=== PATIENT | male | born 1950 | race Caucasian/White ===

== ENCOUNTER → 2016-12-18 | Outpatient (CLI) | payer OTHER ==
[~2016-12-18] MED LIST: PRLSR20 PO
[2016-12-18 14:27] VITALS: BP 145/82; PULSE 78; TEMP 37; O2SAT 95
--- NOTE | 2016-12-18 16:16 | Radiation Oncology Follow-Up ---
Radiation Oncology Follow-Up Date of Visit Dec 18, 2016. Reason For Visit Annual follow-up Radiation Completion Date seed implant on 11-16-2014 and finished IMRT 02-09-2015 Diagnosis (1) Prostate cancer Status: Resolved Onset Date: 01/09/2011 Location: right lobe of the prostate Histology Subtype: adenocarcinoma Stage: ll Permanent Comment: Rising PSA Status post biopsy 01/09/2011 revealing adenocarcinoma [place] 3+3 Watchful waiting Repeat biopsy 03/15/2014 Francois 3+3 and 3+4 The patient requests delay treatment The patient wished to avoid hormone suppression Decision to be treated with seed implant followed by external beam radiation therapy Status post prostate seed implant with cesium 131 11/16/2014 received 8500 cGy Status post completion of IMRT/IGRT completed 02/09/2015 received 4500 cGy Last Edited By: Jaylyn Garner on Mar 07, 2015 12:09 History of Present Illness Mr. Johnson is a 66-year-old male who has a remote history of prostate cancer. The patient's paternal grandmother was diagnosed with prostate cancer in his 80s and due to disseminated prostate cancer. He has been followed with serial prostate-specific antigens. These remained in the range of 1 2010. On 11/02/2010 prostate-specific antigen increased to 7.59. This was therefore repeated on 11/10/2010 and remained elevated at 6.83. Because of this change the patient was scheduled for an ultrasound-guided prostate biopsy performed by Dr. Ferrer on 01/09/2011. A total of 12 core samples were taken of which 10 were benign. The biopsy from the left lateral mid gland was positive for an adenocarcinoma Francois grade 3+3 with no evidence of perineural invasion involving 10% of the core specimen. Biopsy from the right base revealed adenocarcinoma Francois grade 3+3 with no evidence of perineural invasion involving 5% of the core sample. His clinical stage at the time was T1c. Dr. Ferrer discussed treatment options with the patient. At that time he was in the very low risk category and the patient opted to proceed with active surveillance. As part of that process he continued to be followed with digital rectal exams and repeat prostate-specific antigens. On 02/20/2012 his prostate-specific antigen was 5.5. On 02/17/2013 the prostate-specific antigen was 4.39. On 03/02/2014 the prostate-specific antigen increased to 5.83. The patient was seen by Dr. Becca Sun. She discussed the option of continued active surveillance or a repeat biopsies. The patient agreed on a repeat biopsy and these were performed on . A total of 13 core samples were taken. 10 were benign. The biopsy from the right base revealed a prostatic adenocarcinoma Francois grade 3+4 involving 1% of the core sample. Biopsy from the left lateral mid gland revealed prostatic adenocarcinoma [place] grade 3+4 involving less than 5% of the core sample. Biopsy from the right lateral apex was positive for prostatic adenocarcinoma Francois grade 3+3 involving 5% of the core sample. 4 biopsies that were benign had evidence of highgrade PIN and 1 contained atypical small acinar proliferation. [id number]. His estimated prostate volume was 37.7 cm and estimated prostate-specific antigen density was 0.18. This sample showed clear evidence of more aggressive disease. With that finding the patient wished to consider treatment options. He did not wish to have surgery and wished to discuss radiation treatment options. Dr. Sun arrange for the patient to be seen in [place] by Dr. Hirsch to discuss the role of prostate seed implant. It is unclear to the patient whether this was a recommendation for prostate seed implant as monotherapy or part of a more extensive treatment recommendation. Regardless the patient did not wish to consider treatment until the beginning of this year. However in August of last year he was notified that Dr. Hirsch had left [place] and that if the patient wished to receive an implant in the [employer] system he would need to go to [place]. The patient did not wish to travel that far and therefore Dr. Lai his PCP arranged for him to be seen by Dr. Mendez Vidales for consideration and discussion of treatment options. The patients decision was to proceed with a prostate implant followed by IMRT. Interim History He is been doing well over this past year for urinary standpoint. His AUA score was 2. He completed expanded prostate cancer index composite for clinical practice and gave a score of 0 of 12 and urinary incontinence symptoms. He gave a score of 0 of 12 urinary irritation symptoms. He gave a score of one of 12 bowel symptoms. He gave a score 1 of 12 and sexual symptoms. He gave a score of 0 of 12 in hormonal vitality symptoms. His total was 2 of 60. He does not require any medication to help with urination. His last PSA was performed [facility] and was 1.00. This was performed on . Prior PSA 05/27/2015 was 4.320. Allergies Coded Allergies: No Known Allergies (Unverified , 11/16/14) Home Medications Scheduled Omeprazole (Prilosec), 20 MG PO DAILY Review of Systems Gastrointestinal: Symptoms: WNL GI Comments: occ loose stools Oral: Symptoms: No Problems Respiratory: Symptoms: WNL Urinary: Symptoms: WNL Comments: occ urgency Skin: Symptoms: No Problems Physical Exam Vital Signs Date Time Temp Pulse Resp B/P Pulse Ox O2 Delivery O2 Flow Rate FiO2 12/18/16 14:27 37.0 78 16 145/82 95 Pain: Side: Bilateral Pain Location: None Patient Pain Scale: 0 - 10 Initial Pain Intensity: 0.0 Fatigue: None General Appearance: no apparent distress Eyes: normal inspection, EOMI ENT: normal ENT inspection, hearing grossly normal Neck: no adenopathy, thyroid normal Respiratory/Chest: lungs clear, no respiratory distress, no accessory muscle use Cardiovascular: regular rate, rhythm, no gallop, no murmur Abdomen: non tender, soft, no organomegaly Anal / Rectum: Rectal examination reveals prostate to be enlarged and firm. No nodules. There are no rectal masses and no rectal bleeding. Laboratory Studies PSA was drawn and is pending. Assessment & Plan Plan: PSA was drawn today prior to examination. He'll be notified as to results. Continue regular follow-up with Dr. Vidales and his primary care physician. We asked him to return to our office in 1 year. We are alternating visits with Dr. Vidales. He may call our office if he has any questions or concerns in the interim. Total Time In Follow-Up I spent 20 minutes speaking to the patient and performing examination. I spent 15 minutes reviewing information and completing this note. Copy To Mendez Vidales MD; Bhumi Lai M.D.
== END | disposition home or self-care (01) ==
LOC: C.ONC 14:14
PROVIDERS: ATTEND Physician Assistant Medical
DX: Z08 Encounter for follow-up examination after completed treatment for malignant neoplasm (principal); Z92.3 Personal history of irradiation; Z85.46 Personal history of malignant neoplasm of prostate

== ENCOUNTER → 2017-12-24 | Outpatient (CLI) | payer OTHER ==
[2017-12-24 14:14] VITALS: BP 125/84; PULSE 100; TEMP 36.5; O2SAT 97
--- NOTE | 2017-12-24 16:00 | Radiation Oncology Follow-Up ---
Radiation Oncology Follow-Up Date of Visit Dec 24, 2017. Reason For Visit Annual follow-up Radiation Completion Date Seed implant 11/16/14 and external RT 02/09/15 Diagnosis (1) Prostate cancer Status: Resolved Onset Date: 01/09/2011 Location: Right lobe of the prostate Histology Subtype: Adenocarcinoma Stage: ll Permanent Comment: Rising PSA Status post biopsy 01/09/2011 revealing adenocarcinoma [place] 3+3 Watchful waiting Repeat biopsy 03/15/2014 [place] 3+3 and 3+4 The patient requests delay treatment The patient wished to avoid hormone suppression Decision to be treated with seed implant followed by external beam radiation therapy Status post prostate seed implant with cesium 131 11/16/2014 received 8500 cGy Status post completion of IMRT/IGRT completed 02/09/2015 received 4500 cGy Last Edited By: Jaylyn Garner on Mar 07, 2015 12:09 History of Present Illness Mr. Johnson has a remote family history of prostate cancer. The patient's paternal grand father was diagnosed with prostate cancer in his 80s and due to disseminated prostate cancer. He has been followed with serial prostate-specific antigens. These remained in the range of 1 2010. On 11/02/2010 prostate-specific antigen increased to 7.59. This was therefore repeated on 11/10/2010 and remained elevated at 6.83. Because of this change the patient was scheduled for an ultrasound-guided prostate biopsy performed by Dr. Ferrer on 01/09/2011. A total of 12 core samples were taken of which 10 were benign. The biopsy from the left lateral mid gland was positive for an adenocarcinoma [place] grade 3+3 with no evidence of perineural invasion involving 10% of the core specimen. Biopsy from the right base revealed adenocarcinoma Francois grade 3+3 with no evidence of perineural invasion involving 5% of the core sample. His clinical stage at the time was T1c. Dr. Ferrer discussed treatment options with the patient. At that time he was in the very low risk category and the patient opted to proceed with active surveillance. As part of that process he continued to be followed with digital rectal exams and repeat prostate-specific antigens. On 02/20/2012 his prostate-specific antigen was 5.5. On 02/17/2013 the prostate-specific antigen was 4.39. On 03/02/2014 the prostate-specific antigen increased to 5.83. The patient was seen by Dr. Becca Sun. She discussed the option of continued active surveillance or a repeat biopsies. The patient agreed on a repeat biopsy and these were performed on . A total of 13 core samples were taken. 10 were benign. The biopsy from the right base revealed a prostatic adenocarcinoma [place] grade 3+4 involving 1% of the core sample. Biopsy from the left lateral mid gland revealed prostatic adenocarcinoma [place] grade 3+4 involving less than 5% of the core sample. Biopsy from the right lateral apex was positive for prostatic adenocarcinoma [place] grade 3+3 involving 5% of the core sample. 4 biopsies that were benign had evidence of highgrade PIN and 1 contained atypical small acinar proliferation. [id number]. His estimated prostate volume was 37.7 cm and estimated prostate-specific antigen density was 0.18. This sample showed clear evidence of more aggressive disease. With that finding the patient wished to consider treatment options. He did not wish to have surgery and wished to discuss radiation treatment options. Dr. Sun arrange for the patient to be seen in [place] by Dr. Hirsch to discuss the role of prostate seed implant. It is unclear to the patient whether this was a recommendation for prostate seed implant as monotherapy or part of a more extensive treatment recommendation. Regardless the patient did not wish to consider treatment until the beginning of this year. However in August of last year he was notified that Dr. Hirsch had left [place] and that if the patient wished to receive an implant in the [employer] system he would need to go to [place]. The patient did not wish to travel that far and therefore Dr. Lai his PCP arranged for him to be seen by Dr. Mendez Vidales for consideration and discussion of treatment options. The patients decision was to proceed with a prostate implant followed by IMRT. Interim History He has been doing well over the past year. Today he gives an AUA score of 0. He completed and expanded prostate cancer index composite for clinical practice and gave a score of 0 of 12 and urinary incontinence symptoms. He gave a score of 0 12 and urinary irritation symptoms. He gave a score of 0 12 and bowel symptoms. He gave a score 0 of 12 and sexual symptoms. He gave a score of 0 12 and hormonal vitality symptoms. His total was 0 of 0. He had a recheck PSA 6 months ago that was performed at [facility]. This was 0.19 on June. He does not require any medication to help with urination. Allergies Coded Allergies: No Known Allergies (Unverified , 11/16/14) Home Medications Scheduled Omeprazole (Prilosec), 20 MG PO DAILY Review of Systems Gastrointestinal: GI Comments: BMs remain looser than prior to RT and not always w/form;2 BMs/ day; Oral: Symptoms: No Problems Respiratory: Symptoms: WNL Urinary: Symptoms: WNL Skin: Symptoms: No Problems Physical Exam Vital Signs Date Time Temp Pulse Resp B/P (MAP) Pulse Ox O2 Delivery O2 Flow Rate FiO2 12/24/17 14:14 36.5 100 20 125/84 97 ECOG Performance Status: 0 Fatigue: None General Appearance: no apparent distress Eyes: normal inspection, EOMI ENT: normal ENT inspection, hearing grossly normal Respiratory/Chest: lungs clear, no respiratory distress, no accessory muscle use Cardiovascular: regular rate, rhythm, no gallop, no murmur Abdomen: non tender, soft, no organomegaly Anal / Rectum: Prostate is enlarged. This is smooth without nodules. No rectal masses no rectal bleeding. Normal sphincter tone. Extremities: no pedal edema Neurologic/Psychiatric: no motor/sensory deficits, alert, normal mood/affect Skin: warm/dry Pain Management Patient Reports Pain: No Pain Location: None Patient Preferred Pain Scale: 0 - 10 Initial Pain Intensity: 0.0 Pain Management Plan He denies pain therefore requires no pain management. Laboratory Laboratory Results: were reviewed Laboratory Comments: Reviewed in the interim history. Test 12/24/17 14:32 Prostate Specific Antigen 0.077 ng/ml (0.000-4.000) Pathology Pathology Results: were reviewed, and pertinent findings noted in HPI Imaging Imaging Studies: were reviewed, and pertinent findings noted in HPI Assessment & Plan Plan: The PSA was drawn today prior to examination. He will be notified as to the results. He has a follow-up appointment with Dr. Vidales in 6 months. We discussed recheck PSAs every 6 months. He would like to continue follow-up at this point with Dr. Vidales. We did discuss that he should have an examination at least once a year and the PSA should continue every 6 months for a total of 5 years or depending on Dr. Vidales's recommendation. He will call our office if he has any questions or concerns. Total Time In Follow-Up I spent 20 minutes speaking to the patient in performing examination. I spent 15 minutes reviewing information and completing this note. [place] Copy To Mendez Vidales MD; Yves Arizmendi M.D.(VICTORINO)
== END | disposition home or self-care (01) ==
LOC: C.ONC 13:59
PROVIDERS: ATTEND Physician Assistant Medical
DX: Z08 Encounter for follow-up examination after completed treatment for malignant neoplasm (principal); Z92.3 Personal history of irradiation; Z85.46 Personal history of malignant neoplasm of prostate